=== PATIENT | female | born 1975 | race Caucasian/White ===

== ENCOUNTER → 2017-06-27 | Outpatient (CLI) | payer OTHER ==
[~2017-06-27] MED LIST: CALC200T3 PO; FAMO20TA37 PO; HYDR-3240 PO; IBUP-1222 PO; NIFE20CA PO; PREN1TAB60 PO
== END | disposition home or self-care (01) ==
LOC: CFH 10:04
PROVIDERS: ATTEND Obstetrics & Gynecology
DX: Z12.31 Encounter for screening mammogram for malignant neoplasm of breast (principal)
CPT/HCPCS: 77063; 77067

== ENCOUNTER → 2017-12-27 | Outpatient (CLI) | payer OTHER ==
[2017-12-27 10:38] LABS: BASOPHILS # (AUTO) 0.03 x10^3/uL (0-0.1); BASOPHILS % (AUTO) 0 % (0-1); EOSINOPHILS # (AUTO) 0.13 x10^3/uL (0-0.4); EOSINOPHILS % (AUTO) 2 % (1-7); LYMPHOCYTES # (AUTO) 2.03 x10^3/uL (1-3.4); LYMPHOCYTES % (AUTO) 25 % (22-44); MD NO; MEAN CORPUSCULAR HEMOGLOBIN 34.2 pg (27.0-34.8); MEAN CORPUSCULAR HGB CONC 34.1 g/dL (32.4-35.8); MEAN CORPUSCULAR VOLUME 100.2 fL (80-100); MONOCYTES # (AUTO) 0.44 x10^3/uL (0.2-0.8); MONOCYTES % (AUTO) 5 % (2-9); NEUTROPHILS # (AUTO) 5.68 x10^3/uL (1.8-6.8); NEUTROPHILS % (AUTO) 68 % (42-75); PLATELET COUNT 207 x10^3/uL (130-400); RED BLOOD COUNT 3.72 x10^6/uL (3.82-5.3); RED CELL DISTRIBUTION WIDTH 13.3 % (9.6-15.2)
== END | disposition home or self-care (01) ==
LOC: LAB 09:45
PROVIDERS: ATTEND Obstetrics & Gynecology
DX: Z34.82 Encounter for supervision of other normal pregnancy, second trimester (principal); Z3A.15 15 weeks gestation of pregnancy
CPT/HCPCS: 36415; 82105; 85025; 86592; 86762; 86850; 86900; 87340; 87806; G0475

== ENCOUNTER → 2018-02-13 | Outpatient (CLI) | payer OTHER ==
[2018-02-13 16:08] LABS: PLATELET COUNT 192 x10^3/uL (130-400)
== END | disposition home or self-care (01) ==
LOC: CFH 11:43
PROVIDERS: ATTEND Obstetrics & Gynecology
DX: Z34.82 Encounter for supervision of other normal pregnancy, second trimester (principal)
CPT/HCPCS: 36415; 82950; 85014; 85018; 85049; 86592; 86803

== ENCOUNTER 2018-04-10 15:04 | Outpatient (CLI) | payer OTHER ==
[~2018-04-10] VITALS: Ht 177.8 cm; Wt 113.2 kg
[2018-04-10] MEDS ORDERED: FAMO1TAB25 PO (15:19)
[2018-04-10] MEDS ORDERED: ASPI-496 PO (15:19)
[2018-04-10 15:56] VITALS: BP 117/70
== END 2018-04-10 16:31 | disposition home or self-care (01) ==
LOC: LDOP 15:04
PROVIDERS: ATTEND Obstetrics & Gynecology
DX: O42.913 Preterm premature rupture of membranes, unspecified as to length of time between rupture and onset of labor, third trimester (principal); Z3A.33 33 weeks gestation of pregnancy
CPT/HCPCS: 59025; 76815; 84112; 99211; G0463

== ENCOUNTER 2018-05-22 06:09 | Inpatient (IN) | payer OTHER ==
[~2018-05-22] VITALS: Ht 177.8 cm; Wt 115.5 kg
[~2018-05-22 06:09] MED LIST changes: +ASPI-496 PO; +FAMO1TAB25 PO
[2018-05-22] MEDS ORDERED: NEWBORN KIT ONE (06:12)
[2018-05-22] MEDS ORDERED: LIDOCAINE/PF 1%, 30ML ONE (06:12)
[2018-05-22] MEDS ORDERED: MISOPROSTOL 25 MCG TABLET ONE (06:12)
[2018-05-22] MEDS ORDERED: MISOPROSTOL 200 MCG TABLET ONE (06:12)
[2018-05-22] MEDS ORDERED: OXYTOCIN 30U/ 0.9% NaCL 500ML 500 ML ONE ×2 (06:12→21:11)
[2018-05-22] MEDS ORDERED: D5%-LACTATED RINGERS 1,000 ML IV SCH (06:17)
[2018-05-22] MEDS ORDERED: OXYTOCIN 30U/ 0.9% NaCL 500ML 500 ML IV PRN (06:17)
[2018-05-22] MEDS ORDERED: OXYTOCIN 30U/ 0.9% NaCL 500ML 500 ML IV ONE (06:17)
[2018-05-22] MEDS ORDERED: CALCIUM CARBONATE 500 MG TAB.CHEW PO PRN ×2 (06:30→20:30)
[2018-05-22] MEDS ORDERED: TERBUTALINE 1 MG/ML, 1ML SQ PRN (06:30)
[2018-05-22] MEDS ORDERED: ONDANSETRON 2MG/ML, 2ML IVPush PRN ×2 (06:30→17:30)
[2018-05-22] MEDS ORDERED: FENTANYL PF 100 MCG/2ML IVPush PRN (06:30)
[2018-05-22] MEDS ORDERED: MISOPROSTOL 25 MCG TABLET VG PRN (06:30)
[2018-05-22] MEDS ORDERED: FENTANYL PF 100 MCG/2ML IV PRN (06:30)
[2018-05-22 06:36] VITALS: BP 119/72
[2018-05-22] MEDS ORDERED: ONDANSETRON 2MG/ML, 2ML ONE (06:44)
[2018-05-22] MEDS: LACTATED RINGERS 1,000 ML IV SCH ×2 (06:50→14:56)
[2018-05-22 06:55] LABS: BASOPHILS # (AUTO) 0.03 x10^3/uL (0-0.1); BASOPHILS % (AUTO) 0 % (0-1); EOSINOPHILS # (AUTO) 0.14 x10^3/uL (0-0.4); EOSINOPHILS % (AUTO) 2 % (1-7); LYMPHOCYTES # (AUTO) 2.54 x10^3/uL (1-3.4); LYMPHOCYTES % (AUTO) 29 % (22-44); MD NO; MEAN CORPUSCULAR HEMOGLOBIN 30.9 pg (27.0-34.8); MEAN CORPUSCULAR VOLUME 93.5 fL (80-100); MEAN PLATELET VOLUME 9.2 fL (7.4-10.4); MONOCYTES # (AUTO) 0.54 x10^3/uL (0.2-0.8); MONOCYTES % (AUTO) 6 % (2-9); NEUTROPHILS # (AUTO) 5.68 x10^3/uL (1.8-6.8); NEUTROPHILS % (AUTO) 64 % (42-75); PLATELET COUNT 233 x10^3/uL (130-400); RED BLOOD COUNT 3.75 x10^6/uL (3.82-5.3); RED CELL DISTRIBUTION WIDTH 14.1 % (9.6-15.2)
[2018-05-22] MEDS ORDERED: FENTANYL PF 500 MCG, BUPIVACAINE/PF 0.5%, 30ML 62.5 ML in SODIUM CHLORIDE 0.9% 177.5 ML EPIDCONT SCH (14:09)
[2018-05-22] MEDS ORDERED: FENTANYL PF 100 MCG/2ML ONE (14:34)
[2018-05-22] MEDS ORDERED: BUPIVACAINE 0.25% ONE ×2 (14:34→18:56)
[2018-05-22] MEDS ORDERED: LIDOCAINE/PF 1.5%-EPI 1:200K, 30ML ONE (15:13)
[2018-05-22] MEDS ORDERED: FENTANYL/BUPIV./NS/PF 250 ML EPIDCONT SCH (17:05)
[2018-05-22] MEDS ORDERED: LACTATED RINGERS 1,000 ML IV SCH (17:05)
[2018-05-22] MEDS ORDERED: EPHEDRINE 50 MG/ML, 1ML IVPush PRN (17:30)
[2018-05-22] MEDS ORDERED: LACTATED RINGERS 1,000 ML IVBOLUS PRN (17:30)
[2018-05-22] MEDS: OXYTOCIN 30U/ 0.9% NaCL 500ML 500 ML IV SCH (20:18)
[2018-05-22] MEDS ORDERED: MISOPROSTOL 200 MCG TABLET PR PRN (20:30)
[2018-05-22] MEDS ORDERED: HYDROcodone/APAP 5/325 TABLET PO PRN ×2 (20:30)
[2018-05-22] MEDS ORDERED: ONDANSETRON 2MG/ML, 2ML IV PRN (20:30)
[2018-05-22] MEDS ORDERED: CARBOPROST TROMETHAMINE 250 MCG/ML, 1ML IM PRN (20:30)
[2018-05-22] MEDS ORDERED: DOCUSATE 100 MG CAPSULE PO PRN (20:30)
[2018-05-22] MEDS ORDERED: METHYLERGONOVINE 0.2 MG/ML IM PRN (20:30)
[2018-05-22 21:40] VITALS: BP 100/64
[2018-05-22] MEDS: IBUPROFEN 600 MG TABLET PO PRN (22:32)
[2018-05-23] VITALS: BP 100/64
[2018-05-23 03:49] LABS: BASOPHILS # (AUTO) 0.05 x10^3/uL (0-0.1); BASOPHILS % (AUTO) 0 % (0-1); EOSINOPHILS % (AUTO) 1 % (1-7); LYMPHOCYTES # (AUTO) 2.79 x10^3/uL (1-3.4); LYMPHOCYTES % (AUTO) 23 % (22-44); MD NO; MEAN CORPUSCULAR HEMOGLOBIN 31.7 pg (27.0-34.8); MEAN CORPUSCULAR HGB CONC 33.6 g/dL (32.4-35.8); MEAN CORPUSCULAR VOLUME 94.4 fL (80-100); MEAN PLATELET VOLUME 9.2 fL (7.4-10.4); MONOCYTES # (AUTO) 0.78 x10^3/uL (0.2-0.8); MONOCYTES % (AUTO) 7 % (2-9); NEUTROPHILS # (AUTO) 8.23 x10^3/uL (1.8-6.8); NEUTROPHILS % (AUTO) 69 % (42-75); PLATELET COUNT 191 x10^3/uL (130-400); RED BLOOD COUNT 3.67 x10^6/uL (3.82-5.3); RED CELL DISTRIBUTION WIDTH 13.9 % (9.6-15.2)
[2018-05-23 06:10] VITALS: BP 95/62
[2018-05-23] MEDS: OXYTOCIN 30U/ 0.9% NaCL 500ML 500 ML IV SCH (06:18)
[2018-05-23] MEDS: IBUPROFEN 600 MG TABLET PO PRN ×3 (06:27→18:21)
[2018-05-23 07:30] VITALS: BP 104/64
[2018-05-23] MEDS ORDERED: PRENATAL VIT/IRON/FA 1 EACH TABLET PO SCH (09:00)
[2018-05-23 12:30] VITALS: BP 107/72
[2018-05-23 16:30] VITALS: BP 128/68
== END 2018-05-23 18:30 | disposition home or self-care (01) | DRG 806 ==
LOC: LDIP 06:09 → 2NW 21:27
PROVIDERS: ADMIT Obstetrics & Gynecology; ATTEND Obstetrics & Gynecology
PROC: 10E0XZZ Delivery of Products of Conception, External Approach (ICD-10-PCS; principal; 2018-05-22)
PROC: 3E0R3BZ Introduction of Anesthetic Agent into Spinal Canal, Percutaneous Approach (ICD-10-PCS; 2018-05-22)
PROC: 00HU33Z Insertion of Infusion Device into Spinal Canal, Percutaneous Approach (ICD-10-PCS; 2018-05-22)
PROC: 3E033VJ Introduction of Other Hormone into Peripheral Vein, Percutaneous Approach (ICD-10-PCS; 2018-05-22)
DX: O69.1XX0 Labor and delivery complicated by cord around neck, with compression, not applicable or unspecified (principal); O99.354 Diseases of the nervous system complicating childbirth; Z37.0 Single live birth; Z3A.39 39 weeks gestation of pregnancy
CPT/HCPCS: 36415; 85025; 86850; 86900; G0378; J2405; J3010; J3490; J7050; J7120

== ENCOUNTER 2018-11-13 10:20 | Outpatient (CLI) | payer OTHER ==
[~2018-11-13 10:20] MED LIST changes: +GADOBUTROL 10 MMOL/10 ML VIAL ONE
== END 2018-11-13 23:59 | disposition home or self-care (01) ==
LOC: CFH 10:20
PROVIDERS: ATTEND Obstetrics & Gynecology
DX: Z80.3 Family history of malignant neoplasm of breast (principal)
CPT/HCPCS: A9585; C8908; C8937

== ENCOUNTER 2019-07-30 08:36 | Outpatient (CLI) | payer OTHER ==
[~2019-07-30 08:36] MED LIST changes: -GADOBUTROL 10 MMOL/10 ML VIAL ONE
== END 2019-07-30 23:59 | disposition home or self-care (01) ==
LOC: STAR 08:36
PROVIDERS: ATTEND Obstetrics & Gynecology
DX: Z02.9 Encounter for administrative examinations, unspecified (principal)

== ENCOUNTER 2019-08-14 05:38 | Day surgery (SDC) | payer OTHER ==
[~2019-08-14] VITALS: Ht 177.8 cm; Wt 98.3 kg
[2019-08-14] MEDS ORDERED: LACTATED RINGERS 1,000 ML IV SCH (06:10)
[2019-08-14 06:22] VITALS: BP 113/77
[2019-08-14] MEDS ORDERED: ACETAMINOPHEN 500 MG TABLET PO ONE (06:30)
[2019-08-14] MEDS ORDERED: PHENAZOPYRIDINE 200 MG TABLET PO ONE (06:30)
[2019-08-14] MEDS ORDERED: GABAPENTIN 300 MG CAPSULE PO ONE (06:30)
[2019-08-14 06:40] LABS: HCG UR SG 1.005 (1.003-1.030)
[2019-08-14] MEDS ORDERED: EPINEPHRINE 1 MG/ML, 1ML ONE ×2 (06:50→08:07)
[2019-08-14] MEDS ORDERED: BUPIVACAINE/PF 0.25% ONE ×2 (06:50→08:07)
[2019-08-14] MEDS ORDERED: FLUORESCEIN SODIUM 500 MG/5 ML ONE (06:50)
[2019-08-14] MEDS ORDERED: VASOPRESSIN 20 UNIT/ML, 1ML ONE (06:50)
[2019-08-14] MEDS ORDERED: SODIUM CHLORIDE 0.9% 0 ML ONE (06:51)
[2019-08-14] MEDS ORDERED: MIDAZOLAM 1 MG/ML, 2ML ONE (07:18)
[2019-08-14] MEDS ORDERED: FENTANYL PF 250 MCG/5ML ONE (07:18)
[2019-08-14] MEDS ORDERED: LIDOCAINE GEL 2%, 5ML ONE (07:21)
[2019-08-14] MEDS ORDERED: HALOPERIDOL 5 MG/ML IV PRN (07:30)
[2019-08-14] MEDS ORDERED: OXYcodone 5 MG/5 ML ORAL.SOL UDC PO PRN (07:30)
[2019-08-14] MEDS ORDERED: HYDROmorphone 2 MG/ML, 1ML IVPush PRN (07:30)
[2019-08-14] MEDS ORDERED: hydrALAzine 20 MG/ML, 1ML IV PRN (07:30)
[2019-08-14] MEDS ORDERED: LABETALOL 5MG/ML, 20ML IV PRN (07:30)
[2019-08-14] MEDS ORDERED: PROMETHAZINE 25 MG/ML, 1ML IV PRN (07:30)
[2019-08-14] MEDS ORDERED: EPHEDRINE 50 MG/ML, 1ML ONE (07:55)
[2019-08-14] MEDS ORDERED: FENTANYL PF 100 MCG/2ML ONE ×2 (09:11→10:32)
[2019-08-14] MEDS ORDERED: NEOSTIGMINE 1 MG/ML, 10ML ONE (09:16)
[2019-08-14] MEDS ORDERED: DEXAMETHASONE 4 MG/ML, 1ML ONE (09:16)
[2019-08-14] MEDS ORDERED: CEFAZOLIN 1,000 MG ONE (09:16)
[2019-08-14] MEDS ORDERED: ONDANSETRON 2MG/ML, 2ML ONE ×2 (09:16→13:15)
[2019-08-14] MEDS ORDERED: PROPOFOL 10 MG/ML, 20ML ONE (09:16)
[2019-08-14] MEDS ORDERED: GLYCOPYRROLATE 0.2MG/1ML, 5ML ONE (09:16)
[2019-08-14] MEDS ORDERED: SUCCINYLCHOLINE 20 MG/ML, 10ML ONE (09:16)
[2019-08-14] MEDS ORDERED: ROCURONIUM 10MG/ML,5ML ONE (09:16)
[2019-08-14] MEDS ORDERED: MEPERIDINE/PF 25MG/ML,1ML ONE (10:16)
[2019-08-14] MEDS ORDERED: HALOPERIDOL 5 MG/ML ONE (10:16)
[2019-08-14] MEDS: MEPERIDINE/PF 25MG/ML,1ML IVPush PRN ×2 (10:20→10:25)
[2019-08-14] MEDS: FENTANYL PF 100 MCG/2ML IV PRN ×2 (10:33→10:38)
[2019-08-14] MEDS ORDERED: ONDANSETRON 2MG/ML, 2ML IVPush PRN (13:30)
== END 2019-08-14 17:30 | disposition home or self-care (01) ==
LOC: OUT 05:38
PROVIDERS: ATTEND Obstetrics & Gynecology
DX: Z15.09 Genetic susceptibility to other malignant neoplasm (principal); N87.9 Dysplasia of cervix uteri, unspecified; N80.0 Endometriosis of uterus; N83.02 Follicular cyst of left ovary; N83.01 Follicular cyst of right ovary; G43.909 Migraine, unspecified, not intractable, without status migrainosus; E66.9 Obesity, unspecified; Z68.30 Body mass index [BMI] 30.0-30.9, adult; Z90.49 Acquired absence of other specified parts of digestive tract; Z80.41 Family history of malignant neoplasm of ovary; Z80.3 Family history of malignant neoplasm of breast
CPT/HCPCS: 58552; 81025; 88112; 88305; 88307; J0171; J0330; J0690; J1100; J1630; J2175; J2250; J2405; J2704; J2710; J3010; J3490; J7120

== ENCOUNTER 2020-06-16 10:05 | Outpatient (CLI) | payer OTHER | END 2020-06-16 23:59 | disposition home or self-care (01) | LOC: CFH 10:05 | PROVIDERS: ATTEND Internal Medicine | DX: Z12.31 Encounter for screening mammogram for malignant neoplasm of breast (principal) | CPT/HCPCS: 77063; 77067 ==